=== PATIENT | female | born 1970 | race Two or more races ===

== ENCOUNTER 2017-12-16 19:36 | Emergency (ER) | payer OTHER ==
[2017-12-16] MEDS ORDERED: ACETAMINOPHEN 325 MG TABLET (FP) PO ONE (20:38)
[2017-12-16 20:39] VITALS: BMI 28.3
--- NOTE | 2017-12-16 20:39 | PDOC ---
Rapid Medical Evaluation Chief Complaint: Cold Symptoms Time Seen by Provider: 12/16/17 20:34 Medical Evaluation: Allergies Allergy/AdvReac Type Severity Reaction Status Date / Time diclofenac Allergy Verified 04/01/16 19:10 I have performed a brief in-person evaluation of this patient. The patient presents with a chief complaint of: flu like symptoms x 1 week Pertinent physical exam findings: cough, febrile, tachycardic I have ordered the following: tylenol The patient will proceed to the ED for further evaluation.
--- NOTE | 2017-12-16 21:22 | PDOC ---
History of Present Illness - General Chief Complaint: Cold Symptoms Stated Complaint: COLD SYMPTOMS Time Seen by Provider: 12/16/17 20:34 - History of Present Illness Initial Comments: 47 year old female with no PMH presenting with nausea, NBNB vomiting, NB diarrhea, fevers, myalgias, and left sided headache with lacrimation for the past 4 days. States that her symptoms all started on Tuesday last week. Her symptoms do improve with Motrin but her vomiting and diarrhea concerned her enough to come in today. Her headache is left sided (todd-orbital and temporal) not worse with movement, in the morning, or bending over. She denies neck stiffness, visual acuity loss, SOB, chest pain, syncope, or other sick symptoms. 12/16/17 21:45 Past History - Past Medical History Allergies/Adverse Reactions: Allergies Allergy/AdvReac Type Severity Reaction Status Date / Time diclofenac Allergy Verified 12/16/17 20:39 Home Medications: Ambulatory Orders Ondansetron [Zofran *Odt*] 8 mg SL BID PRN 7 Days #14 od.tablet 12/16/17 Oseltamivir Phosphate [Tamiflu -] 75 mg PO BID #9 capsule 12/16/17 COPD: No - Suicide/Smoking/Psychosocial Hx Smoking History: Never smoked Have you smoked in the past 12 months: No Information on smoking cessation initiated: No Hx Alcohol Use: No Drug/Substance Use Hx: No Substance Use Type: None Review of Systems - Review of Systems Constitutional: Yes: Chills, Fever, Loss of Appetite. No: Diaphoresis HEENTM: Yes: Tearing, Nose Congestion. No: Eye Pain, Blurred Vision, Recent change in vision Respiratory: No: Cough, Orthopnea, Shortness of Breath, Stridor, Wheezing Cardiac (ROS): No: Chest Pain, Irregular Heart Rate, Chest Tightness ABD/GI: Yes: Diarrhea, Nausea, Poor Appetite, Vomiting : No: Burning, Dysuria, Discharge Musculoskeletal: Yes: Muscle Pain. No: Back Pain Integumentary: No: Erythema, Lesions, Lumps, Pruritus Neurological: Yes: Headache. No: Paresthesia, Tingling Psychiatric: No: Anxiety, Depression *Physical Exam - Vital Signs Last Vital Signs Temp Pulse Resp BP Pulse Ox 102.8 F H 137 H 25 H 136/87 100 12/16/17 20:36 12/16/17 20:36 12/16/17 20:36 12/16/17 20:36 12/16/17 20:36 - Physical Exam General Appearance: Yes: Nourished, Appropriately Dressed. No: Apparent Distress HEENT: positive: EOMI, LUCRECIA, Normal Voice, Other (nasal congestion and left eye lacrimation). negative: Normal ENT Inspection Neck: positive: Trachea midline, Normal Thyroid, Supple. negative: Tender, Rigid Respiratory/Chest: positive: Lungs Clear, Normal Breath Sounds. negative: Chest Tender, Respiratory Distress, Accessory Muscle Use Cardiovascular: positive: Regular Rhythm, Regular Rate Gastrointestinal/Abdominal: positive: Normal Bowel Sounds, Flat, Soft. negative : Tender Musculoskeletal: positive: Normal Inspection. negative: Decreased Range of Motion Extremity: positive: Normal Capillary Refill, Normal Inspection, Normal Range of Motion. negative: Tender Integumentary: positive: Normal Color, Dry, Warm Neurologic: positive: Fully Oriented, Alert, Normal Mood/Affect, Normal Response , Motor Strength 5/5 ED Treatment Course - Medications Given in the ED: ED Medications Discontinued Medications Generic Name Dose Route Start Last Admin Trade Name Freq PRN Reason Stop Dose Admin Acetaminophen 975 mg 12/16/17 20:38 12/16/17 20:40 Tylenol - PO 12/16/17 20:39 975 mg ONCE ONE Administration Medical Decision Making - Medical Decision Making 47 year old with symptoms and physical exam concerning for likely influenza and left sided cluster headache. Patient overall well appearing and non-toxic. Lungs clear and abdomen benign. No meningeal signs or risk factors. Will treat for the flu and headache. Will PO hydrate, give oseltamivir, given Tylenol by E, will give Toradol 30 IM, Reglan 10 PO, and Benadryl 25 PO. 12/16/17 21:52 Patient feeling much better without fever, improved headache, and no nausea. Passed PO challenge. Will DC with tamiflu and zofran with return precautions. 12/16/17 23:16 *DC/Admit/Observation/Transfer Diagnosis at time of Disposition: Influenza Cluster headache Qualifiers: Headache chronicity pattern: unspecified pattern Intractability: not intractable Qualified Code(s): G44.009 - Cluster headache syndrome, unspecified , not intractable - Discharge Dispostion Disposition: HOME Condition at time of disposition: Improved Admit: No - Prescriptions Prescriptions: Ondansetron [Zofran *Odt*] 8 mg SL BID PRN 7 Days #14 od.tablet PRN Reason: Nausea And/Or Vomiting Oseltamivir Phosphate [Tamiflu -] 75 mg PO BID #9 capsule - Referrals Referrals: John Whitaker MD [Primary Care Provider] - - Patient Instructions Printed Discharge Instructions: DI for Influenza -- Adult Additional Instructions: You likely have the flu. Please take Tylenol for your fever and the tamiflu twice a day for 9 more doses. You can use the Zofran up to twice a day for nausea. Please return to the ED if you have worsening symptoms or if you do not improve in a few days. Please follow up with your primary care physician if you have any further questions. - Post Discharge Activity
[2017-12-16] MEDS ORDERED: METOCLOPRAMIDE HCL 10 MG TABLET (FP) PO ONE ×2 (21:32→21:43)
[2017-12-16] MEDS ORDERED: diphenhydrAMINE HCL 25 MG CAPSULE (FP) PO ONE ×2 (21:32→21:43)
[2017-12-16] MEDS ORDERED: KETOROLAC TROMETHAMINE 30 MG/1 ML VIAL IM ONE (21:36)
--- NOTE | 2017-12-16 21:39 | PDOC ---
Attending Attestation - Resident Resident Name: Ramon Del Toro - ED Attending Attestation I have performed the following: I have examined & evaluated the patient, The case was reviewed & discussed with the resident, I agree w/resident's findings & plan, Exceptions are as noted - HPI HPI: 12/16/17 21:38 47y F no pmhx present with complaint of myalgia, fever/chills, cough, congestion , headache, and nbnb n/v/d. 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 No ga, cp, sob, abd pain. vitals noted for fever/tachycardia Pts exam reveals clear lungs, abd soft nontender pt is well appearing in no distress suspect flu with gi component will treat with antipyretic, tamiflu supportive measures at home pmd fu return precautions were given
[2017-12-16] MEDS ORDERED: OSELTAMIVIR PHOSPHATE 75 MG CAPSULE PO ONE (21:44)
[2017-12-16] MEDS ORDERED: OSELTAMIVIR PHOSPHATE 75 MG CAPSULE ONE (21:44)
[2017-12-16] MEDS ORDERED: KETOROLAC TROMETHAMINE 30 MG/1 ML VIAL ONE (21:45)
[2017-12-16 23:09] LABS: URINE APPEARANCE CLEAR; URINE BILIRUBIN NEGATIVE (NEGATIVE); URINE BLOOD NEGATIVE (NEGATIVE); URINE COLOR STRAW; URINE GLUCOSE (UA) NEGATIVE (NEGATIVE); URINE KETONE NEGATIVE (NEGATIVE); URINE LEUK ESTERASE NEGATIVE (NEGATIVE); URINE NITRITE NEGATIVE (NEGATIVE); URINE PROTEIN NEGATIVE (NEGATIVE); URINE UROBILINOGEN NEGATIVE mg/dL (0.2-1.0)
[2017-12-16 23:10] LABS: HCG,QUALITATIVE URINE NEGATIVE
[2017-12-16 23:33] VITALS: BP 131/80; PULSE 88; TEMP 98.4
== END 2017-12-16 23:33 | disposition home or self-care (01) ==
LOC: JER 19:36
PROC: 3E0233Z Introduction of Anti-inflammatory into Muscle, Percutaneous Approach (ICD-10-PCS; principal; 2017-12-16)
DX: J11.1 Influenza due to unidentified influenza virus with other respiratory manifestations (principal); G44.009 Cluster headache syndrome, unspecified, not intractable
CPT/HCPCS: 81003; 84703; 96372; 99282-25